=== PATIENT | male | born 1985 | race African-American/Black ===

== ENCOUNTER 2019-10-01 10:43 | Emergency (ER) | payer SELFPAY ==
[~2019-10-01] VITALS: Ht 175.3 cm; Wt 68.2 kg
[2019-10-01 10:45] VITALS: Ht 175.3 cm; Wt 68.2 kg
[2019-10-01 11:22] LABS: APTT 31.8 SECONDS (22.8-39.4); BASOPHILS 0.2 % (0-2); EOSINOPHILS 0.9 % (0-7); HEMATOCRIT 39.2 % (42.0-54.0); HEMOGLOBIN 13.3 g/dL (13.5-17.5); IMMATURE GRANULOCYTES 0.2 % (0-5); INR 1.14 (0.85-1.17); LYMPHOCYTES 25.4 % (15-50); MCH 29.7 pg (26.0-34.0); MCHC 33.9 g/dL (31.0-37.0); MCV 87.5 fL (80.0-100.0); MONOCYTES 10.2 % (2-11); NEUTROPHILS 63.1 % (40-80); PLATELET COUNT 205 10x3/uL (130-400); PROTIME 14.5 SECONDS (11.6-15.0); RBC 4.48 10x6/uL (4.20-6.10); RDW 12.8 % (11.5-14.5); WBC 6.7 10x3/uL (4.8-10.8)
[2019-10-01 11:39] LABS: ALBUMIN 3.7 g/dL (3.4-5.0); ALKALINE PHOSPHATASE 72 U/L (30-120); ALT (SGPT) 19 U/L (10-68); BILIRUBIN - TOTAL 0.55 mg/dL (0.2-1.3); CALC OSMOLALITY 274 mosm/kg (275-300); CALCIUM 8.9 mg/dL (8.5-10.1); CARBON DIOXIDE 28.6 mmol/L (21.0-32.0); CHLORIDE - SERUM 102 mmol/L (98-107); CKMB 1.7 U/L (0.0-3.6); CREATINE KINASE 227 UL (21-232); GLUCOSE 89 mg/dL (74-106); MAGNESIUM - SERUM 1.8 mg/dL (1.8-2.4); PROTEIN - SERUM 7.9 g/dL (6.4-8.2); SODIUM 139 mmol/L (136-145); UREA NITROGEN 8 mg/dL (7-18); eGFR NON AFRICAN AMERICAN > 90 mL/min (90-120)
[2019-10-01 11:41] LABS: POTASSIUM - SERUM 2.8 mmol/L (3.5-5.1); TROPONIN-I < 0.017 ng/mL (0.000-0.060)
[2019-10-01 12:58] VITALS: BP 163/86
== END 2019-10-01 13:08 | disposition home or self-care (01) ==
LOC: D.ER 10:43
PROVIDERS: Emergency Medicine
DX: E87.6 Hypokalemia (principal); R00.2 Palpitations; R07.9 Chest pain, unspecified